=== PATIENT | female | born 1945 | race Caucasian/White ===

== ENCOUNTER → 2021-11-27 10:42 | Outpatient (CLI) | payer MEDICARE, OTHER, SELFPAY ==
--- NOTE | 2021-11-27 10:49 | DI.MRI.S_ITS ---
PROCEDURE: MR KNEE LT WO CON INDICATIONS: Unilateral primary osteoarthritis, left knee TECHNIQUE: Noncontrast sagittal PD fast spin echo and T2 fast spin echo with fat saturation, sagittal 3-D FLASH with fat saturation; coronal T1 spin echo and PD fast spin echo with fat saturation, and axial PD fast spin echo with fat saturation through the knee. COMPARISON: None. FINDINGS: Image quality: Excellent. Menisci: Diminutive appearance of medial meniscus suggestive of prior partial meniscectomy versus chronic complex tear. Signal abnormality within posterior horn remanent of medial meniscus is seen extending to inferior articulating surface. Peripheral displacement of medial meniscus is noted bowing medial collateral ligament. Lateral meniscus is intact. The meniscal root ligaments appear intact. Cruciate ligaments: The anterior and posterior cruciate ligaments appear intact. Medial structures: Low-grade MCL sprain is seen. The posterior oblique ligament, semimembranosus tendon insertions, oblique popliteal ligament, and meniscocapsular junction appear intact. Visualized portions of the pes anserinus tendons appear normal. No abnormal bursal fluid. Lateral structures: The lateral collateral ligament, long and short heads of the biceps femoris tendon appear intact. The popliteus tendon appears normal; the popliteofibular ligament appears intact. The posterosuperior and anteroinferior popliteomeniscal fascicles appear intact. The arcuate and fabellofibular ligaments appear intact, on either side of the lateral inferior geniculate artery. Iliotibial band appears normal. Anterior structures: The quadriceps and patellar tendons appear intact. Patellar alignment is normal. No femoral trochlear dysplasia or ventral trochlear prominence. No edema in the infrapatellar fat pad. Bones and cartilage: Moderate to severe medial femoral tibial compartment osteoarthritis and chondromalacia is seen with mild edema involving medial periphery of medial femoral condyle weight-bearing portion and adjacent medial periphery of medial tibial plateau. No discrete fracture line is seen. Mild to moderate osteoarthritis and chondromalacia in lateral femoral tibial compartment and patellofemoral compartment is seen. No fracture or dislocation. Joint space: There is moderate joint effusion, no gross loose bodies. No Cancino's cyst. Normal appearing synovial plicae are incidentally noted. IMPRESSION: 1. 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 [id number] osteoarthritis and low-grade chondromalacia in lateral femoral tibial compartment and patellofemoral compartment. Moderate joint effusion, no gross loose bodies. 2. Suggestion of prior partial meniscectomy versus chronic complex tear involving medial meniscus with diminutive appearance of medial meniscus. Suggestion of oblique tear involving posterior horn remanent of medial meniscus extending to inferior articulating surface. Lateral meniscus is intact. 3. Low-grade MCL sprain. Anterior and posterior cruciate ligaments are intact. Dictated by: Chai Palacio M.D. on 11/27/2021 at 12:41 Approved by: Chai Palacio M.D. on 11/27/2021 at 13:02
== END ==
PROVIDERS: Referring Provider Orthopaedic Surgery; Visit Provider Orthopaedic Surgery
DX: M17.12 Unilateral primary osteoarthritis, left knee (principal); S83.412A Sprain of medial collateral ligament of left knee, initial encounter; M22.42 Chondromalacia patellae, left knee; M25.462 Effusion, left knee
CPT/HCPCS: 73721